=== PATIENT | male | born 1960 | race Caucasian/White ===

== ENCOUNTER 2020-11-14 05:03 | Inpatient (IN) | payer MEDICAID ==
[~2020-11-14] VITALS: Ht 165.1 cm; Wt 78.0 kg
[2020-11-14] VITALS (31 sets, daily range): BP systolic 40–157; BP diastolic 20–101
[2020-11-14] MEDS ORDERED: NITROGLYCERIN 0.4MG TABLET SL SL PRN (08:00)
[2020-11-14] MEDS ORDERED: LABETALOL HCL 20MG/4ML CARPUJECT IV ONE (08:00)
[2020-11-14] MEDS ORDERED: ASPIRIN 81MG TABLET PO ONE (08:00)
[2020-11-14] MEDS ORDERED: LABETALOL 5MG/ML SYR 20 MG/4 ML SYRINGE IV SCH (08:15)
[2020-11-14 09:01] LABS: BASOPHILS % 0.6 % (0.0-2.0); EOSINOPHILS % 0.2 % (0.0-5.0); HEMATOCRIT. 48.9 % (42.0-52.0); LYMPHOCYTES % 16.6 % (20.0-50.0); MEAN CORPUSCULAR HEMOGLOBIN 33.4 pg (28.0-32.0); MEAN CORPUSCULAR VOLUME 95.9 fL (80.0-94.0); MEAN PLATELET VOLUME 7.9 fl (7.4-10.4); NEUTROPHILS % 78.6 % (40.0-76.0); PLATELET 226 x1000/uL (130-400)
[2020-11-14 09:05] LABS: CHLORIDE 105 mEq/L (98-107)
[2020-11-14] MEDS ORDERED: HEPARIN 5000 UNITS/ML VIAL IV ONE (10:45)
[2020-11-14] MEDS ORDERED: ASPIRIN 325MG EC TABLET PO NR (11:00)
[2020-11-14] MEDS ORDERED: IODIXANOL 320MG/ML 100 ML BOTTLE IV ONE ×2 (11:01→12:45)
[2020-11-14] MEDS ORDERED: MIDAZOLAM HCL 5 MG/5 ML VIAL ONE (11:01)
[2020-11-14] MEDS ORDERED: IOHEXOL-300 100 ML BOTTLE ONE ×2 (11:01→12:43)
[2020-11-14] MEDS ORDERED: LIDOCAINE HCL 1% 20ML VIAL (Pyxis) INJ ONE (11:01)
[2020-11-14] MEDS ORDERED: FENTANYL CITRATE/PF 50MCG/ML 5ML VIAL ONE (11:01)
[2020-11-14] MEDS ORDERED: VERAPAMIL HCL 2.5 MG/1 ML 2ML VIAL IV ONE (11:18)
[2020-11-14] MEDS ORDERED: HEPARIN SODIUM 1,000 UNIT/1ML VIAL IV ONE (12:00)
[2020-11-14] MEDS ORDERED: NITROGLYCERIN 50MCG/ML 10ML VIAL (CATH LAB) IV ONE (12:00)
[2020-11-14] MEDS ORDERED: FENTANYL CITRATE/PF 50MCG/ML 2ML VIAL ONE (12:16)
[2020-11-14] MEDS ORDERED: MIDAZOLAM HCL 2 MG/2 ML VIAL ONE (12:16)
[2020-11-14] MEDS ORDERED: ACETAMINOPHEN 325MG TABLET PO PRN (13:15)
[2020-11-14] MEDS ORDERED: ONDANSETRON HCL 4MG/2ML INJ IV PRN (13:15)
[2020-11-14] MEDS ORDERED: DEXTROSE 50% WATER 50ML SYRINGE IV PRN (13:15)
[2020-11-14] MEDS ORDERED: LABETALOL 5MG/ML SYR 20 MG/4 ML SYRINGE IV PRN (13:30)
[2020-11-14] MEDS ORDERED: ATROPINE SULFATE 1MG/10ML SYR IV PRN (13:45)
[2020-11-14] MEDS: SODIUM CHLORIDE 0.45% 500 ML IV SCH ×2 (14:15→21:36)
[2020-11-14] MEDS: BLOOD SUGAR DIAGNOSTIC STRIP TEST SCH ×2 (17:50→21:22)
[2020-11-14] MEDS: INSULIN LISPRO 100 UNITS/ML SUBCUT SCH ×2 (18:16→21:22)
[2020-11-14] MEDS: ATORVASTATIN CALCIUM 40MG TABLET PO SCH (21:21)
[2020-11-15] VITALS (32 sets, daily range): BP systolic 120–169; BP diastolic 49–94
[2020-11-15 01:25] LABS: CHLORIDE 107 mEq/L (98-107)
[2020-11-15 07:04] LABS: BASOPHILS % 0.6 % (0.0-2.0); EOSINOPHILS % 1.3 % (0.0-5.0); HEMATOCRIT. 46.6 % (42.0-52.0); LYMPHOCYTES % 19.4 % (20.0-50.0); MEAN CORPUSCULAR HEMOGLOBIN 33.2 pg (28.0-32.0); MEAN CORPUSCULAR VOLUME 96.7 fL (80.0-94.0); MEAN PLATELET VOLUME 7.9 fl (7.4-10.4); MONOCYTES % 7.1 % (2.0-8.0); NEUTROPHILS % 71.6 % (40.0-76.0); PLATELET 217 x1000/uL (130-400); RED BLOOD CELL COUNT 4.82 mill/uL (4.7-6.1); RED CELL DISTRIBUTION WIDTH 13.1 % (11.6-14.6)
[2020-11-15 07:16] LABS: CHLORIDE 106 mEq/L (98-107)
[2020-11-15] MEDS: BLOOD SUGAR DIAGNOSTIC STRIP TEST SCH ×4 (07:50→21:15)
[2020-11-15] MEDS: ASPIRIN 81MG TABLET PO SCH (09:24)
[2020-11-15] MEDS: INSULIN LISPRO 100 UNITS/ML SUBCUT SCH ×4 (09:25→21:20)
[2020-11-15] MEDS: ATORVASTATIN CALCIUM 40MG TABLET PO SCH (21:21)
[2020-11-16] VITALS (10 sets, daily range): BP systolic 130–161; BP diastolic 74–94
[2020-11-16] MEDS: BLOOD SUGAR DIAGNOSTIC STRIP TEST SCH ×2 (05:43→12:23)
[2020-11-16] MEDS: ASPIRIN 81MG TABLET PO SCH (09:09)
[2020-11-16] MEDS: INSULIN LISPRO 100 UNITS/ML SUBCUT SCH ×2 (09:10→13:11)
[2020-11-16 10:01] LABS: BASOPHILS % 0.5 % (0.0-2.0); EOSINOPHILS % 1.5 % (0.0-5.0); HEMATOCRIT. 47.7 % (42.0-52.0); HEMOGLOBIN. 16.3 g/dL (14.0-18.0); LYMPHOCYTES % 23.4 % (20.0-50.0); MEAN CORPUSCULAR HEMOGLOBIN 33.3 pg (28.0-32.0); MEAN CORPUSCULAR VOLUME 97.2 fL (80.0-94.0); MEAN PLATELET VOLUME 8.1 fl (7.4-10.4); MONOCYTES % 8.3 % (2.0-8.0); NEUTROPHILS % 66.3 % (40.0-76.0); PLATELET 208 x1000/uL (130-400); RED BLOOD CELL COUNT 4.91 mill/uL (4.7-6.1); RED CELL DISTRIBUTION WIDTH 12.9 % (11.6-14.6)
[2020-11-16 10:13] LABS: CHLORIDE 106 mEq/L (98-107)
[2020-11-16] MEDS ORDERED: ASPI-1160 PO (12:44)
[2020-11-16] MEDS ORDERED: LIP40 PO (12:44)
[2020-11-16] MEDS ORDERED: AMLO5TAB88 MT (12:44)
[2020-11-16] MEDS ORDERED: AMLODIPINE 5MG TABLET PO SCH (12:45)
[2020-11-16] MEDS ORDERED: METF-414 MT (12:47)
[2020-11-16] MEDS ORDERED: METOPROLOL TARTRATE 25MG TABLET PO SCH (13:00)
[2020-11-16] MEDS ORDERED: METFORMIN HCL 500MG TABLET PO NR (13:00)
== END 2020-11-16 14:25 | disposition home or self-care (01) | DRG 190 ==
LOC: ER 05:03 → OR 11:16 → CVICU 11:17 → 3WST 11-15 22:35
PROVIDERS: ADMIT Internal Medicine; ATTEND Internal Medicine
PROC: 4A023N7 Measurement of Cardiac Sampling and Pressure, Left Heart, Percutaneous Approach (ICD-10-PCS; principal; 2020-11-14)
PROC: B211YZZ Fluoroscopy of Multiple Coronary Arteries using Other Contrast (ICD-10-PCS; 2020-11-14)
PROC: B41FYZZ Fluoroscopy of Right Lower Extremity Arteries using Other Contrast (ICD-10-PCS; 2020-11-14)
DX: I21.09 ST elevation (STEMI) myocardial infarction involving other coronary artery of anterior wall (principal); E11.65 Type 2 diabetes mellitus with hyperglycemia; E78.5 Hyperlipidemia, unspecified; I11.0 Hypertensive heart disease with heart failure; I25.10 Atherosclerotic heart disease of native coronary artery without angina pectoris; I50.22 Chronic systolic (congestive) heart failure; I49.3 Ventricular premature depolarization; Z20.828 Contact with and (suspected) exposure to other viral communicable diseases; E78.00 Pure hypercholesterolemia, unspecified; Z79.84 Long term (current) use of oral hypoglycemic drugs; Z79.899 Other long term (current) drug therapy
CPT/HCPCS: 36415; 71045; 80048; 80053; 80061; 82962; 83036; 83735; 83880; 84484; 85025; 85347; 87426; 93005; 93306; 93458; 99291; C1760; C1769; C1887; C1893; C1894; J1644; J1815; J2250; J3010; J3490; Q9967